=== PATIENT | male | born 1950 | race Caucasian/White ===

== ENCOUNTER 2017-10-23 14:08 | Emergency (ER) | payer MEDICARE, MEDICAID ==
[2017-10-23] MEDS ORDERED: Ketorolac Tromethamine 30 MG/ML VIAL ONE (15:54)
--- NOTE | 2017-10-23 16:01 | CT ---
CT HEAD NONCONTRAST DATE: 10/23/17 HISTORY: Fall. Head injury. FINDINGS: There is no evidence of acute intracranial hemorrhage or infarct. The ventricles appear normal in siz e, shape, and position. There is no mass effect or shift of midline structures. Visualized paranasal sinuses remain well aerated. IMPRESSION: No acute intracranial abnormalities are demonstrated. POS: H
--- NOTE | 2017-10-23 16:36 | CT ---
CT CERVICAL SPINE NONCONTRAST: 10/23/17 HISTORY: Fall. Neck injury. FINDINGS: Vertebral body heights are maintained. There is reversal of the normal lordotic curvature. Multilevel disc space narrowing and prominent osteophytosis is present throughout the vertebral bodies and face ts. Cervicothoracic junction is intact. No acute fracture or dislocation. IMPRESSION: Prominent cervical spondylosis. No acute osseous abnormalities are demonstrated. POS: ELI
--- NOTE | 2017-10-23 16:40 | RAD ---
RIGHT HIP TWO VIEWS: 10/23/17 HISTORY: Fall. Right hip pain. FINDINGS: Joint space is preserved. Mild osteophytosis. Femoral head contour is maintained. No acute fracture o r dislocation. IMPRESSION: Mild osteoarthritic changes right hip. No acute osseous abnormalities are demonstrated. POS: VIVI
== END 2017-10-23 17:33 | disposition home or self-care (01) ==
LOC: ERS 14:08
DX: S00.03XA Contusion of scalp, initial encounter (principal); M25.551 Pain in right hip; E78.5 Hyperlipidemia, unspecified; I10 Essential (primary) hypertension; F32.9 Major depressive disorder, single episode, unspecified; Z79.82 Long term (current) use of aspirin; Z79.899 Other long term (current) drug therapy; W19.XXXA Unspecified fall, initial encounter
CPT/HCPCS: 70450; 72125; 96372; J1885

== ENCOUNTER 2021-05-29 15:40 | Observation (INO) | payer MEDICARE, MEDICAID ==
[2021-05-29 16:33] LABS: #Basophils 0.1 thou/uL (0.0-0.2); #Eosinphils 0.2 thou/uL (0.0-0.7); #Lymphocytes 2.3 thou/uL (1.20-3.40); #Monocytes 0.9 thou/uL (0.11-0.59); #Neutrophils 5.2 thou/uL (1.40-6.50); %Basophils 1.1 % (0.0-1.0); %Eosinophils 2.5 % (0.0-10.0); %Lymphocytes 26.2 % (21.0-51.0); %Monocytes 10.5 % (0.0-10.0); %Neutrophils 59.7 % (42.0-75.0); Hemoglobin 14.8 g/dL (14.0-18.0); Mean Corpuscular Hemoglobin 30.4 pg (27.0-31.0); Mean Corpuscular Volume 92.2 fL (78.0-98.0); Mean Platelet Volume 6.8 fL (7.4-10.4); Platelet Count 248 thou/uL (130-400); RBC Distribution Width 11.9 % (11.5-14.5); Red Blood Cell (RBC) Count 4.86 mill/uL (4.70-6.10); White Blood Cell (WBC) Count 8.7 thou/uL (4.8-10.8)
[2021-05-29 16:53] LABS: ALT (SGPT) 21 U/L (8-55); AST (SGOT) 25 U/L (5-34); Albumin 3.9 g/dL (3.4-4.8); Alkaline Phosphatase 58 U/L (40-110); Anion Gap 12 mmol/L (10-20); BUN (Urea Nitrogen) 12 mg/dL (8.4-25.7); Bilirubin, Total 0.3 mg/dL (0.2-1.2); Calc. Creatinine Clearance 0 mL/min (70-130); Calcium 9.5 mg/dL (7.8-10.44); Carbon Dioxide 25 mmol/L (23-31); Chloride 104 mmol/L (98-107); Globulin 3.7 g/dL (2.4-3.5); Glucose 110 mg/dL (80-115); Potassium 4.2 mmol/L (3.5-5.1); Protein, Total 7.6 g/dL (5.8-8.1); Sodium 137 mmol/L (136-145)
[2021-05-29 19:59] VITALS: BMI 39.9
[2021-05-29] MEDS ORDERED: Ondansetron PF 4 MG/2 ML Vial IVP PRN (20:25)
[2021-05-29] MEDS ORDERED: Acetaminophen 325 MG TAB PO PRN (20:25)
[2021-05-29] MEDS ORDERED: hydrALAZINE 20 MG/ML VIAL SLOW IVP PRN (21:33)
[2021-05-29] MEDS ORDERED: Melatonin 3 MG TAB PO PRN (21:49)
[2021-05-29 22:15] LABS: Troponin I Less than 0.010 ng/mL (< 0.028)
[2021-05-30 00:10] LABS: Troponin I Less than 0.010 ng/mL (< 0.028)
[2021-05-30 05:43] LABS: #Basophils 0.1 thou/uL (0.0-0.2); #Eosinphils 0.2 thou/uL (0.0-0.7); #Lymphocytes 2.5 thou/uL (1.20-3.40); #Monocytes 0.9 thou/uL (0.11-0.59); #Neutrophils 3.5 thou/uL (1.40-6.50); %Basophils 1.4 % (0.0-1.0); %Eosinophils 2.9 % (0.0-10.0); %Monocytes 12.6 % (0.0-10.0); %Neutrophils 49.1 % (42.0-75.0); Hemoglobin 14.5 g/dL (14.0-18.0); Mean Corpuscular HGB CONC 32.7 g/dL (32.0-36.0); Mean Corpuscular Volume 91.8 fL (78.0-98.0); Mean Platelet Volume 6.9 fL (7.4-10.4); Platelet Count 235 thou/uL (130-400); RBC Distribution Width 11.7 % (11.5-14.5); Red Blood Cell (RBC) Count 4.83 mill/uL (4.70-6.10); White Blood Cell (WBC) Count 7.2 thou/uL (4.8-10.8)
[2021-05-30 06:13] LABS: Anion Gap 12 mmol/L (10-20); BUN (Urea Nitrogen) 12 mg/dL (8.4-25.7); Calc. Creatinine Clearance 108 mL/min (70-130); Calcium 9.3 mg/dL (7.8-10.44); Carbon Dioxide 25 mmol/L (23-31); Cardiac Risk 3.8 (Less than 4.5); Chloride 104 mmol/L (98-107); Cholesterol 132 mg/dl (< 200 Desired); Glucose 108 mg/dL (80-115); HDL Cholesterol 35 mg/dL (>60 Neg Risk); LDL Cholesterol, Calculated 62 mg/dL; Potassium 4.1 mmol/L (3.5-5.1); Sodium 137 mmol/L (136-145); Triglycerides 174 mg/dL (Less than 150)
[2021-05-30] MEDS ORDERED: OLANZapine 5 MG TAB PO SCH (09:00)
[2021-05-30] MEDS ORDERED: Venlafaxine HCl XR 75 MG CAP PO SCH (09:00)
[2021-05-30] MEDS ORDERED: Bupropion 150 MG XL TAB PO SCH (09:00)
[2021-05-30] MEDS ORDERED: Aspirin Chewable 81 MG TAB PO SCH (09:00)
[2021-05-30] MEDS ORDERED: Atorvastatin Calcium 10 MG TAB PO SCH (09:00)
[2021-05-30 11:58] VITALS: TEMP 98.2
[2021-05-30 12:19] LABS: SARS-CoV-2 PCR by NAA Not Detected (NotDetected)
[2021-05-30 12:36] VITALS: BP 116/81
== END 2021-05-30 16:12 | disposition home or self-care (01) ==
LOC: ERS 15:40 → 2SW 17:38
PROVIDERS: ADMIT Internal Medicine; ATTEND Internal Medicine
DX: R55 Syncope and collapse (principal); N17.9 Acute kidney failure, unspecified; F79 Unspecified intellectual disabilities; E78.5 Hyperlipidemia, unspecified; F32.A Depression, unspecified; I10 Essential (primary) hypertension; E78.00 Pure hypercholesterolemia, unspecified; Z79.82 Long term (current) use of aspirin; Z79.899 Other long term (current) drug therapy; Z88.8 Allergy status to other drugs, medicaments and biological substances; Z20.822 Contact with and (suspected) exposure to COVID-19
CPT/HCPCS: 70450; 80048; 80053; 80061; 84484 ×2; 85025 ×2; 93306; 93880; 99285; G0378 ×3; U0003; U0005; 36415